=== PATIENT | male | born 1995 | race Caucasian/White ===

== ENCOUNTER 2020-03-07 22:57 | Emergency (ER) | payer OTHER, SELFPAY ==
[2020-03-07 22:59] VITALS: BP 148/112; PULSE 101; RESP 18; TEMP 35.9; O2SAT 97; BMI 25.4
[2020-03-07 23:03] VITALS: BP 148/112; PULSE 94; RESP 18; TEMP 35.9; O2SAT 96
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
--- NOTE | 2020-03-07 23:47 | ED.DEP ---
ED Disposition - Plan for ED Patient: Instructions: ED Contusion, Upper Extremity Referrals: [facility] [GROUP OF PHYSICIANS] - Additional Instructions: Ice and elevate your hand. Motrin for pain and swelling. Follow-up with [facility] if not improving.
[2020-03-08 00:02] VITALS: RESP 16
== END 2020-03-08 00:03 | disposition home or self-care (01) ==
LOC: ED 23:56
PROVIDERS: Emergency Provider Emergency Medicine
DX: S60.221A Contusion of right hand, initial encounter (principal); S00.81XA Abrasion of other part of head, initial encounter; Y04.0XXA Assault by unarmed brawl or fight, initial encounter; Y93.72 Activity, wrestling; Y92.9 Unspecified place or not applicable
CPT/HCPCS: 73130; 99282

== ENCOUNTER → 2024-04-10 | Outpatient (CLI) | payer OTHER, SELFPAY ==
[2024-04-10 17:08] LABS: Absolute Lymphocyte Count 2.12 X10^3/uL (0.83-4.51); Absolute Neutrophil Count 3.5 X10^3/uL (2.0-7.7); Basophil# 0.02 X10^3/uL; Basophil% 0.3 % (0-1); Eosinophil# 0.12 X10^3/uL; Hematocrit 45.2 % (40-54); Hemoglobin 16.7 g/dL (13.0-16.5); Lymphocyte # 2.12 X10^3/ul (0.83-4.51); Lymphocyte % 34.5 % (19-41); Mean Corp Hgb Conc 36.9 g/dL (32-36); Mean Corpuscular Hgb 32.3 pg (27.0-32.0); Mean Corpuscular Volume 87.4 fL (80-94); Mean Platelet Vol. 9.4 fl (6.2-12.0); Monocyte# 0.42 X10^3/uL; Monocyte% 6.8 % (0-10); NRBC Flagged by Analyzer 0 % (0-5); Neutrophil # 3.46 X10^3/uL (2.7-7.7); Neutrophil % 56.2 % (47-70); Platelet Count 153 K/mm3 (150-450); RBC Distribution Width CV 11.9 % (11.6-14.6); Red Blood Count 5.17 M/mm3 (4.6-6.2); White Blood Count 6.2 K/mm3 (4.4-11.0)
[2024-04-10 17:46] LABS: ALB/GLOB Ratio 1.4 RATIO (0.9-2.4); AST(SGOT) 26 U/L (15-37); Alanine Aminotransfer ALT/SGPT 31 U/L (16-61); Albumin, Serum 4.1 g/dL (3.2-5.0); Alkaline Phosphatase 73 U/L (45-117); Anion Gap 8 (5-15); BUN 15 mg/dL (7-18); BUN/Creat Ratio 12.9 RATIO (10-20); CRP < 2.90 mg/L (0.0-3.0); Calcium,Total 9.2 mg/dL (8.5-10.1); Chloride 105 mmol/L (98-107); Creatinine, Serum 1.16 mg/dL (0.70-1.30); EST Glomerular Filtration Rate 79 mL/min (>60); Est Glom Filt Rate - Afr Amer 96 mL/min (>60); Glucose 96 mg/dL (74-106); Potassium 4.2 mmol/L (3.5-5.1); Protein, Total 7.1 g/dL (6.4-8.2); Sodium Level 140 mmol/L (136-145)
[2024-04-12 15:07] LABS: Endomysial Antibody IgA Negative (Negative); Immunoglobulin A 171 mg/dL (90-386); t-Transglutaminase IgA <2 U/mL (0-3)
[2024-04-16 08:08] LABS: Beef <0.10 kU/L (Class 0); Chocolate <0.10 kU/L (Class 0); Codfish <0.10 kU/L (Class 0); Corn <0.10 kU/L (Class 0); Egg, Whole 0.21 kU/L (Class 0/I); Milk (Cow) <0.10 kU/L (Class 0); Mussels <0.10 kU/L (Class 0); Peanut <0.10 kU/L (Class 0); Pork <0.10 kU/L (Class 0); Salmon <0.10 kU/L (Class 0); Shrimp <0.10 kU/L (Class 0); Soybean <0.10 kU/L (Class 0); Tuna <0.10 kU/L (Class 0); Wheat <0.10 kU/L (Class 0)
== END | disposition home or self-care (01) ==
LOC: LAB 16:48
PROVIDERS: Referring Provider Nurse Practitioner Acute Care; Visit Provider Nurse Practitioner Acute Care
DX: R10.12 Left upper quadrant pain (principal); R14.0 Abdominal distension (gaseous)
CPT/HCPCS: 36415; 80053; 82784; 83516; 85025; 86003; 86005; 86140; 86255

== ENCOUNTER → 2025-03-04 | Outpatient (CLI) | payer OTHER, SELFPAY ==
--- NOTE | 2025-03-04 15:40 | US_ITS ---
PROCEDURE: TESTICULAR WITH ARTERIAL FLOW 03/04/2025 REASON FOR EXAM: HYDROCELE TECHNIQUE: Procedure Code: USTES Modality: US Procedure: TESTICULAR WITH ARTERIAL FLOW COMPARISON: None FINDINGS: RIGHT testicle: 4.8 x 3.4 x 2.5 cm. Normal arterial inflow and venous outflow. Intratesticular microcalcifications noted. Right epididymis: Unremarkable. LEFT testicle: 5.0 x 3.2 x 2.3 cm. Normal arterial inflow and venous outflow. Intratesticular microcalcifications noted. Left epididymis: Unremarkable. Other findings: No large varicocele. No hydrocele on the right. Small left hydrocele. Right-sided scrotal edema is noted. US/Testicular with Arterial Flow IMPRESSION: No testicular torsion. Small left hydrocele. Right scrotal wall edema. Intratesticular microcalcifications noted. Reading Location: [facility]
== END | disposition home or self-care (01) ==
LOC: US 15:38
PROVIDERS: PCP Internal Medicine; Referring Provider Internal Medicine; Visit Provider Internal Medicine
DX: N43.3 Hydrocele, unspecified (principal)
CPT/HCPCS: 76870; 93976

== ENCOUNTER → 2025-03-17 | Outpatient (CLI) | payer OTHER, SELFPAY ==
--- NOTE | 2025-03-17 14:03 | CT_ITS ---
PROCEDURE: ABDOMEN/PELVIS WITH CONTRAST 03/17/2025 REASON FOR EXAM: RIGHT INGUINAL PAIN POSSIBLE HERNIA TECHNIQUE: Procedure Code: [id number] Modality: CT Procedure: ABDOMEN/PELVIS WITH CONTRAST Coronal and Sagittal reconstruction series were provided. CONTRAST: 100 mL of Isovue 370 One or more dose reduction techniques were used (e.g., Automated exposure control, adjustment of the mA and/or kV according to patient size, use of iterative reconstruction technique. RADIATION DOSE SUMMARY: DLP: 677 mGycm COMPARISON: None FINDINGS: Limited sections of the lung bases demonstrate no focal pulmonary mass or consolidations. The liver, spleen, pancreas, and both adrenal glands demonstrate no acute findings. The gallbladder is unremarkable. The stomach is unremarkable. The small bowel loops are not dilated. The appendix is normal. No colonic obstruction. There is no free air or significant free fluid. The kidneys are unremarkable. The urinary bladder is partially distended. The pelvic structures are intact. There is no solid pelvic mass. No significant lymphadenopathy. The aorta and IVC demonstrate no acute findings. Visualized osseous structures demonstrate no acute abnormality. Mild to moderate fat containing right inguinal hernia. CT/Abdomen/Pelvis WITH Contrast IMPRESSION: Mild to moderate fat containing right inguinal hernia without bowel involvement . No acute intra-abdominal process. Reading Location: [id number]
== END | disposition home or self-care (01) ==
PROVIDERS: PCP Internal Medicine; Referring Provider Surgery; Visit Provider Surgery
DX: R10.31 Right lower quadrant pain (principal)
CPT/HCPCS: 74177; Q9967